=== PATIENT | male | born 1990 | race Caucasian/White ===

== ENCOUNTER 2020-12-24 16:59 | Inpatient (IN) ==
[2020-12-24 17:56] LABS: Basophils % 0.3 %; Eosinophils # 0.1 K/mcL (0.0-0.6); Eosinophils % 0.7 %; Hemoglobin 13.7 g/dL (12.9-16.9); Immature Granulocytes % 0.3 % (0-4); Lymphocytes # 0.6 K/mcL (0.6-4.6); Lymphocytes % 8.1 %; Mean Corpuscular HGB Conc 33.4 g/dL (31.6-35.5); Mean Corpuscular Volume 89.7 fL (83.0-100.0); Mean Platelet Volume 9.8 fL (9.4-12.4); Monocytes # 0.2 K/mcL (0.0-1.3); Neutrophils # 6.6 K/mcL (1.6-8.9); Platelet Count 287 K/mcL (140-400); Red Blood Count 4.57 M/mcL (4.19-5.50); Red Cell Distribution Width 12.8 % (11.5-14.5); Segmented Neutrophils % 88.6 %; White Blood Count 7.4 K/mcL (4.3-11.1)
[2020-12-24 18:38] LABS: Acetaminophen < 10 mcg/mL (10-20); BUN/Creatinine Ratio 8 (6-26); Blood Urea Nitrogen 7 mg/dL (6-20); Calcium 9.7 mg/dL (8.6-10.3); Carbon Dioxide 21 mEq/L (23-29); Chloride 108 mEq/L (98-107); Ethanol 224 mg/dL (Less than 10); Glucose 123 mg/dL (70-105); Osmolality,Calculated 289 (280-300); Potassium 3.9 mEq/L (3.5-5.1); Salicylate < 2.5 mg/dL (15.0-30.0); Sodium 140 mEq/L (136-145); eGFR For African Americans > 60 (> 60); eGFR For Non-African Americans > 60 (> 60)
[2020-12-24 18:54] LABS: Bilirubin,Urine Negative (Negative); Blood,Urine Negative (Negative); Clarity,Urine Clear (Clear); Color,Urine Light-Yellow (Yellow); Glucose,Urine (UA) Normal (Normal); Ketones,Urine Negative (Negative); Leukocyte Esterase,Urine Negative (Negative); Nitrite,Urine Negative (Negative); Protein,Urine Negative (Neg-Trace); Specific Gravity,Urine 1.009 (1.010-1.025); Urobilinogen,Urine Normal (Normal)
[2020-12-24 19:00] LABS: Amphetamine Screen,Urine Negative ng/mL (Cutoff=1000); Barbiturate Screen,Urine Negative ng/mL (Cutoff=200); Benzodiazepines Screen,Urine Negative ng/mL (Cutoff=200); Cannabinoid Screen,Urine Negative ng/mL (Cutoff = 50); Cocaine Screen,Urine Negative ng/mL (Cutoff= 300); Opiate Screen,Urine Negative ng/mL (Cutoff=300); Phencyclidine Screen,Urine Negative ng/mL (Cutoff=25)
[2020-12-24] MEDS ORDERED: 0.9 % Sodium Chloride 1,000 ML IVC ONE (19:27)
[2020-12-24] MEDS ORDERED: Melatonin 3 MG TABLET PO PRN (20:07)
[2020-12-24] MEDS ORDERED: Ondansetron 4 MG/2 ML VIAL IVP PRN (20:07)
[2020-12-24] MEDS ORDERED: *HR* Promethazine 25 MG/ML VIAL IM PRN (20:07)
[2020-12-24] MEDS ORDERED: Naloxone 0.4 MG/ML INJ IVP PRN (20:07)
[2020-12-24] MEDS ORDERED: *HR* LORazepam 2 MG/ML VIAL IVP PRN ×3 (20:09)
[2020-12-24] MEDS ORDERED: Nicotine 14 MG PATCH.TD24 TD SCH (23:45)
[2020-12-25 03:35] LABS: BUN/Creatinine Ratio 10 (6-26); Blood Urea Nitrogen 8 mg/dL (6-20); Carbon Dioxide 24 mEq/L (23-29); Chloride 109 mEq/L (98-107); Glucose 133 mg/dL (70-105); Osmolality,Calculated 290 (280-300); Potassium 3.5 mEq/L (3.5-5.1); Sodium 140 mEq/L (136-145); eGFR For African Americans > 60 (> 60); eGFR For Non-African Americans > 60 (> 60)
[2020-12-25] MEDS ORDERED: *HR* Enoxaparin 40 MG/0.4 ML SYRINGE SQ SCH (06:00)
[2020-12-25] MEDS ORDERED: Vitamin B Complex/Vit C/Vit E 1 EACH TABLET PO SCH (09:00)
[2020-12-25] MEDS ORDERED: Folic Acid 1 MG TABLET PO SCH (09:00)
[2020-12-25] MEDS ORDERED: Thiamine (B-1) 100 MG TABLET PO SCH (09:00)
[2020-12-25 11:09] VITALS: BP 133/82
[2020-12-25] MEDS ORDERED: Acetaminophen 325 MG TABLET PO PRN (12:20)
[2020-12-25 17:47] LABS: Influenza A PCR Negative (Negative); Influenza B PCR Negative (Negative); Resp. Syncytial Virus PCR Negative (Negative)
[2020-12-25 17:51] LABS: SARS-CoV-2 by PCR (In House) Negative (Negative)
== END 2020-12-25 18:55 | DRG 754 ==
LOC: EMEROOARM 16:59 → 3ANU 16:59 → SUATTDRO 21:28 → OBSVTOIN 21:28 → 3ANU 22:20
PROVIDERS: ADMIT Internal Medicine; ATTEND Internal Medicine

== ENCOUNTER 2020-12-25 18:41 | Inpatient (IN) ==
[2020-12-25] MEDS ORDERED: Haloperidol Lactate 5 MG/ML VIAL IM PRN (20:23)
[2020-12-25] MEDS ORDERED: haloperidoL 5 MG TABLET PO PRN (20:23)
[2020-12-25] MEDS ORDERED: *HR* LORazepam 2 MG/ML VIAL IM PRN (20:23)
[2020-12-25] MEDS ORDERED: *HR* LORazepam 1 MG TABLET PO PRN (20:23)
[2020-12-25] MEDS ORDERED: Nicotine 14 MG PATCH.TD24 TD SCH (21:00)
[2020-12-25] MEDS: Ibuprofen 400 MG TABLET PO PRN (21:00)
[2020-12-26] MEDS: hydrOXYzine pamoate 25 MG CAPSULE PO PRN ×2 (04:04→20:45)
[2020-12-26] MEDS: Acetaminophen 325 MG TABLET PO PRN (04:04)
[2020-12-26] MEDS: Ibuprofen 400 MG TABLET PO PRN ×2 (09:35→20:44)
[2020-12-26] MEDS ORDERED: MOM Conc 10 ML UD.LIQ PO PRN (12:42)
[2020-12-26] MEDS ORDERED: Mag Hydrox/Al Hydrox/Simeth 30 ML UDC PO PRN (12:42)
[2020-12-26] MEDS: Nicotine 14 MG PATCH.TD24 TD SCH (14:40)
[2020-12-26] MEDS: ARIPiprazole 5 MG TABLET PO SCH (20:44)
[2020-12-26] MEDS: predniSONE 10 MG TABLET PO SCH (20:45)
[2020-12-27] MEDS: Ibuprofen 400 MG TABLET PO PRN (08:13)
[2020-12-27] MEDS: predniSONE 10 MG TABLET PO SCH ×2 (08:14→17:50)
[2020-12-27] MEDS: Nicotine 14 MG PATCH.TD24 TD SCH ×2 (08:15→16:53)
[2020-12-27] MEDS: hydrOXYzine pamoate 25 MG CAPSULE PO PRN ×2 (11:27→20:32)
[2020-12-27] MEDS: Acetaminophen 325 MG TABLET PO PRN ×2 (11:27→20:32)
[2020-12-27] MEDS: ARIPiprazole 5 MG TABLET PO SCH (20:32)
[2020-12-27] MEDS: traZODone 50 MG TABLET PO PRN (20:32)
[2020-12-28] MEDS: predniSONE 10 MG TABLET PO SCH ×2 (09:07→16:41)
[2020-12-28] MEDS: Nicotine 14 MG PATCH.TD24 TD SCH ×2 (09:11→10:37)
[2020-12-28] MEDS: hydrOXYzine pamoate 25 MG CAPSULE PO PRN ×2 (10:35→20:38)
[2020-12-28] MEDS: Acetaminophen 325 MG TABLET PO PRN (16:40)
[2020-12-28] MEDS: ARIPiprazole 5 MG TABLET PO SCH (20:38)
[2020-12-28] MEDS: Ibuprofen 400 MG TABLET PO PRN (20:38)
[2020-12-28] MEDS: traZODone 50 MG TABLET PO PRN (20:38)
[2020-12-29] MEDS: Ibuprofen 400 MG TABLET PO PRN ×2 (08:44→18:34)
[2020-12-29] MEDS: predniSONE 10 MG TABLET PO SCH (08:44)
[2020-12-29] MEDS: Nicotine 14 MG PATCH.TD24 TD SCH ×2 (08:46→11:38)
[2020-12-29] MEDS ORDERED: Neosporin OINT 15 GM TUBE TP PRN (09:48)
[2020-12-29] MEDS: hydrOXYzine pamoate 25 MG CAPSULE PO PRN ×2 (10:21→20:40)
[2020-12-29] MEDS: Acetaminophen 325 MG TABLET PO PRN (14:31)
[2020-12-29] MEDS: traZODone 50 MG TABLET PO PRN (20:40)
[2020-12-29] MEDS: ARIPiprazole 5 MG TABLET PO SCH (20:40)
[2020-12-30] MEDS: predniSONE 10 MG TABLET PO SCH (08:41)
[2020-12-30] MEDS: Ibuprofen 400 MG TABLET PO PRN ×2 (08:41→18:00)
[2020-12-30] MEDS: Nicotine 14 MG PATCH.TD24 TD SCH ×2 (08:43→13:36)
[2020-12-30] MEDS: hydrOXYzine pamoate 25 MG CAPSULE PO PRN ×2 (12:41→17:59)
[2020-12-30] MEDS: Acetaminophen 325 MG TABLET PO PRN ×2 (12:41→20:40)
[2020-12-30] MEDS: traZODone 50 MG TABLET PO PRN (20:40)
[2020-12-30] MEDS: ARIPiprazole 5 MG TABLET PO SCH (20:41)
[2020-12-31] MEDS: Nicotine 14 MG PATCH.TD24 TD SCH (09:00)
[2020-12-31] MEDS: Acetaminophen 325 MG TABLET PO PRN (09:01)
[2020-12-31 09:21] VITALS: BP 114/75
== END 2020-12-31 12:15 | disposition home or self-care (01) | DRG 751 ==
LOC: 1ANU 18:41
PROVIDERS: ADMIT Psychiatry & Neurology Psychiatry; ATTEND Psychiatry & Neurology Psychiatry